=== PATIENT | female | born 1995 | race Caucasian/White ===

== ENCOUNTER 2020-02-21 13:59 | Emergency (ER) | payer MEDICAID, SELFPAY ==
[2020-02-21 15:34] VITALS: BP 141/72; PULSE 99; RESP 16; TEMP 36.2; O2SAT 100; BMI 39.4
[2020-02-21 16:10] VITALS: BP 127/78; PULSE 92; RESP 19; TEMP 36.7; O2SAT 99
--- NOTE | 2020-02-21 16:35 | US_ITS ---
EXAMINATION: ULTRASOUND PELVIC, COMPLETE CLINICAL INFORMATION: Left-sided pelvic pain. COMPARISON: None. TECHNIQUE: Transvaginal: Used to better visualize pelvic structures Transabdominal: Not not adequate for visualization Spectral Doppler and color Doppler exam was utilized. LMP: Uncertain FINDINGS: UTERUS: Unremarkable. Uterus measures 8 x 4 x 4.5 cm. Uterine volume 78 mL. Endometrial thickness 0.8 cm ADNEXA: Ovarian vascularity:Doppler demonstrates both arterial and venous vascular flow in the right and left ovary. No evidence of ovarian torsion. Right Ovary: There is a cyst with a few scattered low-level echoes in the right ovary. This cyst measures 3.6 x 3.2 x 3.8 cm. The right ovary measures 4.8 x 4.9 x 4.4 cm. Right ovarian volume 54.2 mL. Left Ovary: Unremarkable. 2.8 x 2.6 x 2.2 cm. Left ovarian volume 8.4 mL Cul-de-sac: No Fluid US/US pelvic ovarian doppler IMPRESSION: Mildly complex RIGHT ovarian cyst measuring 3.8 cm.
--- NOTE | 2020-02-21 16:35 | ED.ABDPAIN ---
HPI - Abdominal Pain General Chief Complaint: Abdominal Pain Stated Complaint: low abd pain Time Seen by Provider: 02/21/20 16:34 Source: patient Mode of arrival: ambulatory Limitations: no limitations History of Present Illness HPI narrative: Left-sided pelvic pain for the past 2 days MD elicited complaint: abdominal pain Pertinent past history: none Onset (ago): day(s) Pain Consistency: intermittent Location: pelvis Severity: mild Quality: cramping Radiation: none Migration to: no migration Treatments prior to arrival: other ( Did not try anything at home) Related Data Previous Rx's Medication Instructions Recorded ibuprofen 800 mg PO Q8H PRN #20 tab 02/21/20 nitrofurantoin monohyd/m-cryst 100 mg PO Q12H 7 Days #14 cap 02/21/20 [Macrobid] Allergies Allergy/AdvReac Type Severity Reaction Status Date / Time No Known Allergies Allergy Unverified 12/08/19 16:42 Review of Systems Review of Systems Constitutional: No Weight loss, No Fever, No Chills, No Night Sweats, No Fatigue, No Malaise ENT/Mouth: No Hearing loss, No Ear Pain, No Nasal Congestion, No Sinus Pain, No Hoarseness, No sore throat, No Rhinorrhea, No Swallowing Difficulty Eyes: No Eye Pain, No Swelling, No Redness, No Foreign Body, No Discharge, No Vision Changes Cardiovascular: No Chest Pain, No SOB, No Dyspnea on Exertion, No Orthopnea, No Edema, No Palpitations Respiratory: No Cough, No Sputum, No Wheezing, No Smoke Exposure, No Dyspnea Gastrointestinal: No Nausea, No Vomiting, No Diarrhea, No Constipation, No Hematochezia, No Melena, As noted in HPI Genitourinary: no irregular bleeding, + Dysuria since last noc , No Urinary Frequency, No Hematuria, No Urinary Incontinence, No Urgency, No Flank Pain, No Urinary Flow Changes, No Hesitancy Musculoskeletal: No joint pain, No Myalgias, No Joint Swelling Skin: No Skin Lesions, No rash Neuro: No Weakness, No Numbness, No Paresthesias, No Loss of Consciousness, No Dizziness, No Headache Psych: No Anxiety/Panic, No Depression, No SI/HI/AH/VH, No Social Issues Heme/Lymph: No Bruising, No Bleeding,No Lymphadenopathy Endocrine: No Polyuria, No Polydipsia, No Temperature Intolerance Yes all other systems are reviewed and are negative Physical Exam Vital Signs: Vital Signs: Last Vital Signs Temp 98.6 F 02/21/20 20:19 Pulse 90 02/21/20 20:19 Resp 20 02/21/20 20:19 BP 128/84 02/21/20 20:19 Pulse Ox 99 02/21/20 18:23 Body Mass Index 39.4 Reviewed Const: General: cooperative and healthy appearing; No acute distress or intoxicated appearing Nutritional Appearance: average body habitus Orientation/consciousness: patient oriented x3 Eyes: General: appearance normal, both eyes and all related structures Visual Saez: normal visual saez by confrontation Neck: Neck: Yes normal visual inspection and No tender Thyroid: Thyroid normal Chest: Chest palpation & inspection: normal inspection of the chest Resp: Effort & Inspection: normal respiratory effort Cardio: Jugular venous distension: no JVD Rhythm: regular rhythm GI: Inspection: Yes normal to inspection Palpation (GI): Soft to palpation, not firm, nontender, no guarding, not rigid, No Ascites present and No Rebound tenderness present Percussion: Yes normal to percussion Auscultation: normal bowel sounds : General: Yes no CVA tenderness Back/Spine/Pelvis: Back: no CVA tenderness Skin: General skin exam: no rashes or lesions noted Neuro: General: patient oriented x3 Extrem: General: Yes normal to inspection Course Course Course Narrative: UA equivocal will go ahead and treat this and sent out for culture given her symptoms. otherwise ultrasound shows right ovarian cyst with no vascular instructions/evidence of torsion bilaterally. No vaginal discharge or concern for STI. Overall nontoxic appearing. Will discharge home with short course NSAID, Macrobid with outpatient follow-up. Patient agreeable well nontoxic. Stable for discharge. MDM - Abdominal Pain Lab Data Result diagrams: 02/21/20 16:49 02/21/20 16:49 Labs: Lab Results 02/21/20 02/21/20 02/21/20 Range/Units 16:48 16:49 16:49 WBC 7.3 (4.8-10.8) X10*3/uL RBC 4.49 (4.20-5.50) X10*6/uL Hgb 12.5 (12.0-16.0) g/dl Hct 39.3 (37-47) % MCV 87.5 (80-98) fL MCH 27.8 (27.0-33.0) pg MCHC 31.8 (31.0-35.0) g/dl RDW 14.2 (11.0-16.0) % Plt Count 284 (160-400) X10*3/uL MPV 9.5 (9.4-12.3) fL Immature Gran % (Auto) 0.4 (0.0-0.4) % Neut % (Auto) 59.5 (45-73) % Lymph % (Auto) 31.3 (20-40) % [place] % (Auto) 7.3 (2-11) % Eos % (Auto) 1.4 (0-4) % Baso % (Auto) 0.1 (0-2) % Lymph # (Auto) 2.3 (1.2-4.9) X10*3/uL [place] # (Auto) 0.5 (0.1-1.2) X10*3/uL Eos # (Auto) 0.1 (0.0-0.4) X10*3/uL Baso # (Auto) 0.0 (0.0-0.2) X10*3/uL Abs Immat Gran (auto) 0.03 (0.00-0.03) X10*3/uL Absolute Neuts (auto) 4.3 (2.0-8.3) X10*3/uL Absolute Nucleated RBC 0.000 (0.0-0.012) X10*3/uL Nucleated RBC % (auto) 0.0 (0.0-0.2) /100WBC Sodium 140 (135-145) mmol/L Potassium 4.2 (3.3-5.1) mmol/l Chloride 104 (96-108) mmol/L Carbon Dioxide 26 (22-29) mmol/L Anion Gap 14 (12-20) BUN 7 L (9-16) mg/dL Creatinine 0.68 (0.5-1.4) mg/dL Estim Creat Clear Calc 152.7 Estimated GFR > 60 Random Glucose 76 (60-115) mg/dL Calcium 9.0 (8.4-10.2) mg/dL Total Bilirubin 0.3 (0.0-1.0) mg/dL AST 32 H (5-31) U/L ALT 43 H (0-31) U/L Alkaline Phosphatase 61 (39-117) U/L Total Protein 7.6 (6.5-8.0) g/dL Albumin 4.7 (3.5-5.0) g/dL Urine Color YELLOW Urine Appearance CLEAR Urine pH 6.5 (5.0-8.0) Ur Specific [place] 1.020 (1.005-1.025) Urine Protein NEG (NEG-TRACE) MG/DL Urine Glucose (UA) NEG (NEG) MG/DL Urine Ketones NEG (NEG) MG/DL Urine Blood TRACE (NEG) Urine Nitrite NEG (NEG) Ur Leukocyte Esterase 2+ H (NEG) Urine RBC 0-2 (0) /HPF Urine WBC 5-9 H (0-4) /HPF Ur Squamous Epith Cells 1+ /LPF Urine Bacteria TRACE /LPF Urine Test NEGATIVE (NEGATIVE) Discharge Plan Discharge Clinical Impression: Ovarian cyst, UTI (urinary tract infection) Patient Disposition: Home, Self-Care Instructions: Ovarian Cyst (ED), Urinary Tract Infection in Women (ED) Additional Instructions: Return if any concerns or worsening symptoms otherwise follow up as instructed Thank you Prescriptions: New ibuprofen 800 mg tablet 800 mg PO Q8H PRN (Reason: pain) Qty: 20 RF: 0 nitrofurantoin monohyd/m-cryst [Macrobid] 100 mg capsule 100 mg PO Q12H 7 Days Qty: 14 RF: 0 Referrals: Shanita Montero NP [Primary Care Provider] - 5 days Interventions: ED Discharge Assessment Last Done: 02/21/20 21:59 Discharge Date/Time: 02/21/20 22:01 [facility] Past Medical History Medical History Depression PTSD (post-traumatic stress disorder) Social History Social History Alcohol intake: never Smoked in Last 30 Days: No Use of substances other than those prescribed or required for medical reasons: No Advance Directives: No Advance Directives Information Provided: Yes
--- NOTE | 2020-02-21 16:35 | US_ITS ---
EXAMINATION: ULTRASOUND PELVIC, COMPLETE CLINICAL INFORMATION: Left-sided pelvic pain. COMPARISON: None. TECHNIQUE: Transvaginal: Used to better visualize pelvic structures Transabdominal: Not not adequate for visualization Spectral Doppler and color Doppler exam was utilized. LMP: Uncertain FINDINGS: UTERUS: Unremarkable. Uterus measures 8 x 4 x 4.5 cm. Uterine volume 78 mL. Endometrial thickness 0.8 cm ADNEXA: Ovarian vascularity:Doppler demonstrates both arterial and venous vascular flow in the right and left ovary. No evidence of ovarian torsion. Right Ovary: There is a cyst with a few scattered low-level echoes in the right ovary. This cyst measures 3.6 x 3.2 x 3.8 cm. The right ovary measures 4.8 x 4.9 x 4.4 cm. Right ovarian volume 54.2 mL. Left Ovary: Unremarkable. 2.8 x 2.6 x 2.2 cm. Left ovarian volume 8.4 mL Cul-de-sac: No Fluid US/US transvaginal IMPRESSION: Mildly complex RIGHT ovarian cyst measuring 3.8 cm.
--- NOTE | 2020-02-21 16:35 | US_ITS ---
EXAMINATION: ULTRASOUND PELVIC, COMPLETE CLINICAL INFORMATION: Left-sided pelvic pain. COMPARISON: None. TECHNIQUE: Transvaginal: Used to better visualize pelvic structures Transabdominal: Not not adequate for visualization Spectral Doppler and color Doppler exam was utilized. LMP: Uncertain FINDINGS: UTERUS: Unremarkable. Uterus measures 8 x 4 x 4.5 cm. Uterine volume 78 mL. Endometrial thickness 0.8 cm ADNEXA: Ovarian vascularity:Doppler demonstrates both arterial and venous vascular flow in the right and left ovary. No evidence of ovarian torsion. Right Ovary: There is a cyst with a few scattered low-level echoes in the right ovary. This cyst measures 3.6 x 3.2 x 3.8 cm. The right ovary measures 4.8 x 4.9 x 4.4 cm. Right ovarian volume 54.2 mL. Left Ovary: Unremarkable. 2.8 x 2.6 x 2.2 cm. Left ovarian volume 8.4 mL Cul-de-sac: No Fluid US/US pelvic complete IMPRESSION: Mildly complex RIGHT ovarian cyst measuring 3.8 cm.
[2020-02-21 16:57] LABS: Basophils Percent Auto 0.1 % (0-2); Eosinophils Absolute Auto 0.1 X10*3/uL (0.0-0.4); Eosinophils Percent Auto 1.4 % (0-4); Hematocrit 39.3 % (37-47); Hemoglobin 12.5 g/dl (12.0-16.0); Imm Gran Abs Auto 0.03 X10*3/uL (0.00-0.03); Imm Gran Pct Auto 0.4 % (0.0-0.4); Lymphocytes Absolute Auto 2.3 X10*3/uL (1.2-4.9); Lymphocytes Percent Auto 31.3 % (20-40); MANUAL DIFF FLAG NO; Mean Corpuscular HGB Conc 31.8 g/dl (31.0-35.0); Mean Corpuscular Hemoglobin 27.8 pg (27.0-33.0); Mean Corpuscular Volume 87.5 fL (80-98); Mean Platelet Volume 9.5 fL (9.4-12.3); Monocytes Absolute Auto 0.5 X10*3/uL (0.1-1.2); Monocytes Percent Auto 7.3 % (2-11); Neutrophils Absolute Auto 4.3 X10*3/uL (2.0-8.3); Neutrophils Percent Auto 59.5 % (45-73); Platelet Count 284 X10*3/uL (160-400); Red Blood Count 4.49 X10*6/uL (4.20-5.50); Red Cell Distribution Width 14.2 % (11.0-16.0); White Blood Count 7.3 X10*3/uL (4.8-10.8)
[2020-02-21 17:06] LABS: Glucose Urine UA NEG (NEG); Leukocyte Esterase Urine 2+ (NEG); Nitrite Urine NEG (NEG); PH 6.5 (5.0-8.0); Urine Blood TRACE (NEG); Urine Ketones NEG (NEG); Urine Protein NEG (NEG-TRACE)
[2020-02-21 17:08] LABS: Appearance Urine CLEAR; Color Urine YELLOW
[2020-02-21 17:19] LABS: Bacteria Urine TRACE /LPF; RBC Urine 0-2 /HPF (0); Squamous Epithelial Cell Urine 1+ /LPF
[2020-02-21 17:21] LABS: Alanine Aminotransferase 43 U/L (0-31); Albumin Level 4.7 g/dL (3.5-5.0); Alkaline Phosphatase 61 U/L (39-117); Anion Gap 14 (12-20); Aspartate Amino Transferase 32 U/L (5-31); Bilirubin Total 0.3 mg/dL (0.0-1.0); Blood Urea Nitrogen 7 mg/dL (9-16); Carbon Dioxide 26 mmol/L (22-29); Chloride 104 mmol/L (96-108); Creatinine Clr Calc Pharmacy 152.7; Estimated Glomerular Filt Rate > 60; Glucose Random 76 mg/dL (60-115); Potassium 4.2 mmol/l (3.3-5.1); Sodium 140 mmol/L (135-145); Total Protein 7.6 g/dL (6.5-8.0)
[2020-02-21 17:27] LABS: UPreg QC Valid YES; Urine Pregnancy NEGATIVE (NEGATIVE)
[2020-02-21 18:23] VITALS: BP 122/76; PULSE 92; RESP 20; TEMP 36.8; O2SAT 99
[2020-02-21 20:19] VITALS: BP 128/84; PULSE 90; RESP 20; TEMP 37
== END 2020-02-21 22:01 | disposition home or self-care (01) ==
PROVIDERS: Nurse Practitioner Primary Care; Emergency Provider Emergency Medicine Emergency Medical Services; PCP Registered Nurse
DX: N83.201 Unspecified ovarian cyst, right side (principal); N39.0 Urinary tract infection, site not specified
CPT/HCPCS: 36415; 76830; 76856; 80053; 81001; 81025; 85025; 87086; 93975; 99284